=== PATIENT | female | born 1980 ===

== ENCOUNTER 2017-12-11 16:44 | Emergency (ER) | payer MEDICAID ==
[2017-12-11 16:55] VITALS: RESP 18; O2SAT 100
--- NOTE | 2017-12-11 17:40 | C.PDOC ---
History Of Present Illness 37-year-old female, presents to the emergency department with complaints of mid sternal and left-sided chest pain, that is described as if it if bruised. Patient reports her three months ago. Patient denies shortness of breath or nausea. States it hurts more to take a deep breath and move her arms. She denies cough or over use. States she is feeling very stressed because she is taking care of a baby on her own. Time Seen by Provider: 12/11/17 17:08 Chief Complaint (Nursing): Chest Pain History Per: Patient History/Exam Limitations: no limitations Onset/Duration Of Symptoms: Days Current Symptoms Are (Timing): Still Present Severity: Moderate Past Medical History Reviewed: Historical Data, Nursing Documentation, Vital Signs Vital Signs: Last Vital Signs Temp 97.5 F L 12/11/17 16:53 Pulse 70 12/11/17 16:53 Resp 18 12/11/17 16:53 BP 111/77 12/11/17 16:53 Pulse Ox 100 12/11/17 17:41 Family History: States: No Known Family Hx - Social History Hx Alcohol Use: Yes Hx Substance Use: No - Immunization History Hx Tetanus Toxoid Vaccination: No Hx Influenza Vaccination: No Hx Pneumococcal Vaccination: No Review Of Systems Constitutional: Negative for: Fever, Chills Cardiovascular: Positive for: Chest Pain. Negative for: Palpitations Respiratory: Negative for: Shortness of Breath Gastrointestinal: Negative for: Nausea, Vomiting Musculoskeletal: Negative for: Back Pain Neurological: Negative for: Weakness, Numbness, Headache, Dizziness Physical Exam - Physical Exam Appears: Non-toxic, No Acute Distress Skin: Normal Color, Warm, Dry, No Rash Head: Normacephalic Eye(s): bilateral: PERRL Nose: Normal Oral Mucosa: Moist Lips: Normal Appearing Neck: Normal ROM Chest: No Deformity, Tenderness (chest wall over left sternal border.) Cardiovascular: Rhythm Regular, No Murmur Respiratory: Normal Breath Sounds, No Accessory Muscle Use Extremity: Normal ROM, No Deformity, No Swelling Neurological/Psych: Oriented x3, Normal Speech ED Course And Treatment - Laboratory Results Result Diagrams: 12/11/17 17:42 12/11/17 17:42 Lab Interpretation: No Acute Changes ECG: Interpreted By Ri ECG Rhythm: Sinus Rhythm, R BBB (incomplete) ECG Interpretation: No Acute Changes O2 Sat by Pulse Oximetry: 100 Pulse Ox Interpretation: Normal - Radiology CXR: Interpreted by Me CXR Interpretation: Yes: No Acute Disease Reevaluation Time: 19:36 Reassessment Condition: Improved (Patient remains comfortable in ED. Treated with Naprosyn.) Disposition Counseled Patient/Family Regarding: Studies Performed, Diagnosis, Need For Followup - Disposition Referrals: Shaik Thurston MD [Staff Provider] - Disposition: HOME/ ROUTINE Disposition Time: 19:37 Condition: IMPROVED Instructions: Costochondritis Forms: [employer] Connect (Filipino) - Clinical Impression Clinical Impression: Chest wall pain - Scribe Statement The provider has reviewed the documentation as recorded by the Scribe (Sophie Last) All medical record entries made by the Scribe were at my direction and personally dictated by me. I have reviewed the chart and agree that the record accurately reflects my personal performance of the history, physical exam, medical decision making, and the department course for this patient. I have also personally directed, reviewed, and agree with the discharge instructions and disposition.
[2017-12-11 17:48] LABS: BASO # 0.1 K/uL (0.0-0.2); BASO % 1.4 % (0.0-2.0); EOS # 0.2 K/uL (0.0-0.7); EOS % 2.2 % (0.0-4.0); HEMOGLOBIN 12.2 g/dL (11.0-16.0); LYMPH # 2.6 K/uL (1.0-4.3); LYMPH % 28.2 % (20.0-40.0); MEAN CELL VOLUME 92.6 fL (81.0-99.0); MEAN CORPUSCULAR HEMOGLOBIN 30.9 pg (27.0-31.0); MEAN CORPUSCULAR HGB CONC 33.4 g/dL (33.0-37.0); MONO # 0.6 K/uL (0.0-0.8); MONO % 6.7 % (0.0-10.0); NEUT # 5.6 K/uL (1.8-7.0); NEUT % 61.5 % (50.0-75.0); NRBC % 0.1 % (0.0-2.0); RBC 3.93 Mil/uL (3.80-5.20); RED CELL DISTRIBUTION WIDTH 14.4 % (11.5-14.5); WHITE BLOOD COUNT 9.2 K/uL (4.8-10.8)
[2017-12-11 17:58] LABS: CALCIUM 8.3 mg/dl (8.6-10.4); GFR AFRICAN-AMERICAN > 60; GFR NON-AFRICAN AMERICAN > 60
[2017-12-11 17:59] LABS: ALB/GLOB RATIO 1.1 (1.0-2.1); ALBUMIN 4.4 g/dL (3.5-5.0); ALT/SGPT 13 U/L (9-52); AST/SGOT 40 U/L (14-36); BLOOD UREA NITROGEN 12 mg/dL (7-17)
[2017-12-11 18:06] LABS: SQUAMOUS EPITHIAL 1 /hpf (0-5); URINE BILIRUBIN NEGATIVE (NEGATIVE); URINE BLOOD 3+ (NEGATIVE); URINE CLARITY Clear (Clear); URINE COLOR Colorless (YELLOW); URINE GLUCOSE (UA) NORMAL (Normal); URINE LEUKOCYTE ESTERASE NEG Leu/uL (Negative); URINE PROTEIN NEGATIVE (NEGATIVE); URINE UROBILINOGEN NORMAL mg/dL (0.2-1.0)
--- NOTE | 2017-12-11 18:11 | RAD ---
PROCEDURE: CHEST RADIOGRAPH, 1 VIEW HISTORY: chest pain COMPARISON: None available. FINDINGS: LUNGS: Clear. PLEURA: No pneumothorax or pleural fluid seen. CARDIOVASCULAR: Normal. OSSEOUS STRUCTURES: No significant abnormalities. VISUALIZED UPPER ABDOMEN: Normal. OTHER FINDINGS: None. IMPRESSION: No active disease.
[2017-12-11] MEDS ORDERED: Naproxen 550 mg Tab PO STA (18:51)
[2017-12-11] MEDS ORDERED: Naproxen 550 mg Tab PO ONE (19:26)
[2017-12-11 20:16] VITALS: BP 116/73; PULSE 75; TEMP 98
--- NOTE | 2017-12-12 12:47 | CARD ---
APPROVED REPORT EKG Measurement Heart [id number] ID [id number] <Conclusion> Normal sinus rhythm Incomplete right bundle branch block Borderline ECG
== END 2017-12-11 20:19 | disposition home or self-care (01) ==
LOC: C.ER 16:44
DX: R07.89 Other chest pain (principal)

== ENCOUNTER 2018-12-14 20:20 | Emergency (ER) | payer MEDICAID ==
[2018-12-14 20:35] VITALS: PULSE 66; RESP 18; TEMP 98.8; O2SAT 100
--- NOTE | 2018-12-14 21:02 | C.PDOC ---
History Of Present Illness 38 year old female presents to ED with complaint of right elbow pain for the past 2 days progressively after doing pushups. Pt states at first felt a soreness to left upper arm but now has has become progressively worse with moderate pain to right elbow. Patient denies numbness and weakness or direct trauma. Time Seen by Provider: 12/14/18 20:40 Chief Complaint (Nursing): Upper Extremity Problem/Injury History Per: Patient History/Exam Limitations: no limitations Onset/Duration Of Symptoms: Days (2) Current Symptoms Are (Timing): Still Present Quality: "Pain" Past Medical History Reviewed: Historical Data, Nursing Documentation, Vital Signs Vital Signs: Last Vital Signs Temp 98.8 F 12/14/18 20:30 Pulse 66 12/14/18 20:30 Resp 18 12/14/18 20:30 BP Pulse Ox 100 12/14/18 20:30 - Medical History PMH: No Chronic Diseases Surgical History: No Surg Hx Family History: States: Unknown Family Hx - Social History Hx Alcohol Use: Yes Hx Substance Use: No - Immunization History Hx Tetanus Toxoid Vaccination: No Hx Influenza Vaccination: No Hx Pneumococcal Vaccination: No Review Of Systems Constitutional: Negative for: Weakness Musculoskeletal: Positive for: Arm Pain (right elbow pain ) Neurological: Negative for: Weakness, Numbness Physical Exam - Physical Exam Appears: Well, Non-toxic, No Acute Distress Skin: Normal Color, Warm, Dry Head: Atraumatic, Normacephalic Neck: Normal ROM, Supple Chest: Symmetrical, No Deformity Cardiovascular: Rhythm Regular, No Murmur Respiratory: No Accessory Muscle Use Extremity: Tenderness (tenderness to the right elbow epicondrylar area , no tenderness to the biceps/triceps muscles, no tenderness to the antecubital area, no swelling noted as compared to left arm, no erythema or warmth), Capillary Refill (<2 seconds) Pulses: Left Radial: Normal, Right Radial: Normal Neurological/Psych: Oriented x3, Normal Speech, Normal Cognition, Normal Motor (5/5 strength), Normal Sensation Gait: Steady ED Course And Treatment O2 Sat by Pulse Oximetry: 100 (in RA) Pulse Ox Interpretation: Normal Medical Decision Making Medical Decision Making: Impression:38 year old female with right elbow pain. Plan: Toradol IM Disposition - Disposition Referrals: [facility] [Outside] Disposition: HOME/ ROUTINE Disposition Time: 21:00 Condition: STABLE Additional Instructions: Please follow up with PMD naproxen for pain Return to ER if worse Prescriptions: Naproxen [Naprosyn] 1 tab PO BID PRN #25 tab PRN Reason: Pain Instructions: Elbow Sprain (DC) Forms: [employer] (Yoruba) - Clinical Impression Clinical Impression: Sprain of elbow, right - PA / [employer] / Resident Statement MD/DO has reviewed & agrees with the documentation as recorded. (Yenni Lane) - Scribe Statement The provider has reviewed the documentation as recorded by the Scribe (Yenni Lane) All medical record entries made by the Scribe were at my direction and personally dictated by me. I have reviewed the chart and agree that the record accurately reflects my personal performance of the history, physical exam, medical decision making, and the department course for this patient. I have also personally directed, reviewed, and agree with the discharge instructions and disposition.
--- NOTE | 2018-12-14 21:03 | C.PDOC ---
Time Seen by Provider: 12/14/18 20:40 Chief Complaint (Nursing): Upper Extremity Problem/Injury Past Medical History Vital Signs: Last Vital Signs Temp 98.8 F 12/14/18 20:30 Pulse 66 12/14/18 20:30 Resp 18 12/14/18 20:30 BP Pulse Ox 100 12/14/18 20:30 - Social History Hx Alcohol Use: Yes Hx Substance Use: No - Immunization History Hx Tetanus Toxoid Vaccination: No Hx Influenza Vaccination: No Hx Pneumococcal Vaccination: No ED Course And Treatment O2 Sat by Pulse Oximetry: 100 Disposition Counseled Patient/Family Regarding: Diagnosis, Need For Followup, Rx Given - Disposition Referrals: [facility] [Outside] Disposition: HOME/ ROUTINE Disposition Time: 21:00 Condition: STABLE Additional Instructions: Please follow up with PMD naproxen for pain Return to ER if worse Prescriptions: Naproxen [Naprosyn] 1 tab PO BID PRN #25 tab PRN Reason: Pain Instructions: Elbow Sprain (DC) Forms: [employer] (Argentine) - Clinical Impression Clinical Impression: Sprain of elbow, right
== END 2018-12-14 21:10 | disposition home or self-care (01) ==
LOC: C.ER 20:20
DX: S53.401A Unspecified sprain of right elbow, initial encounter (principal); X58.XXXA Exposure to other specified factors, initial encounter; Y93.B2 Activity, push-ups, pull-ups, sit-ups
CPT/HCPCS: 96372; 99283; J1885